=== PATIENT | male | born 1945 | race Caucasian/White ===

== ENCOUNTER → 2017-03-12 | Outpatient (CLI) | payer MEDICARE, BC ==
[~2017-03-12] MED LIST: ASPIRIN 81MG TA81 MG PO; FLOMAX 0.4MG C0.4 MG PO; LIPITOR10 MG PO
--- NOTE | 2017-03-13 11:20 | RADIOLOGY REPORT PS360 ---
MRI-L-SPINE W/O, MRI-3D RENDERING/MYELOGRAM HISTORY: Low back pain DEGENERATIVE DISC DISEASE ORDERING PHYSICIAN: Eva Cunha MD PATIENT AGE: 71 years COMPARISON: Radiograph of 05/08/2016 TECHNIQUE: Standard multiplanar multiecho sequences are performed without contrast. 3-D MIP and myelographic images are also rendered and reviewed FINDINGS: The spinal cord ends at the L1-L2 level. T11-T12: Degenerative disc disease. There is a small right paracentral herniated disc with inferior extrusion causing mild narrowing of the right lateral recess and the right T11-T12 foramen likely causing some impingement upon the exiting T11 nerve root. T12-L1 unremarkable. L1-L2: Mild disc desiccation. L2-L3: Degenerative disc disease with type I endplate changes and mild bulging disc. There is minimal retrolisthesis of L2 on L3 of approximately 3 to 4 mm. Facet and ligamentum flavum hypertrophy is present with moderate bilateral foraminal narrowing. L3-L4: Degenerative disc disease with bulging disc with facet hypertrophy and mild bilateral foraminal narrowing. L4-L5: Degenerative disc disease with bulging disc. There is mild retrolisthesis of L4 of 3 mm there is mild bilateral foraminal narrowing. L5-S1: Moderate to severe degenerative disc disease with 7 mm anterolisthesis of L5 with bilateral pars defects. Pseudodisc bulge is present with moderate to severe bilateral foraminal narrowing.. Incidental note made of bilateral renal cysts. IMPRESSION: 1. Abnormal MRI of the lumbar spine with multilevel lumbar spondylosis with degenerative disc disease, bulging disc, and facet hypertrophic change as detailed above. We see above for detailed description at each level. 2. There is a small right paracentral disc herniation within extrusion at T11-T12 causing foraminal narrowing. 3. Grade 1 spondylolytic spondylolisthesis of L5 on S1 with degenerative disc disease and resultant bilateral foraminal narrowing 4. Severe degenerative disc disease with bulging disc at L2-L3 with type I endplate changes with moderate bilateral foraminal narrowing.
== END ==
LOC: RAD 08:41
DX: M51.36 Other intervertebral disc degeneration, lumbar region (principal)